=== PATIENT | female | born 1955 | race Caucasian/White ===

== ENCOUNTER → 2020-10-10 10:33 | Outpatient (CLI) | payer BC, SELFPAY ==
--- NOTE | 2020-10-10 10:46 | XR_ITS ---
PROCEDURE INFORMATION: Exam: XR Cervical Spine Exam date and time: 10/10/2020 10:46 AM Age: 65 years old Clinical indication: Patient HX: Left shoulder pain , PT stated pain goes down left arm , no injury; Additional info: Biceps tendonitis on left TECHNIQUE: Imaging protocol: XR of the cervical spine. Views: 4 or 5 views. COMPARISON: No relevant prior studies available. FINDINGS: Bones/joints: No acute fracture of the cervical spine. No subluxation or dislocation of the cervical spine. Intervertebral disc space narrowing C5/C6 may represent degenerative disc disease.. Anterior osteophyte formation C5/C6 Posterior osteophyte formation C5/C6 Degenerative changes in the facets at multiple levels Degenerative changes at C1/C2 Soft tissues: Unremarkable. IMPRESSION: 1. No acute fracture of the cervical spine. 2. No subluxation or dislocation of the cervical spine. 3. Intervertebral disc space narrowing C5/C6 may represent degenerative disc disease..
--- NOTE | 2020-10-10 10:46 | XR_ITS ---
PROCEDURE INFORMATION: Exam: XR Left Shoulder Exam date and time: 10/10/2020 10:46 AM Age: 65 years old Clinical indication: Pain; Shoulder; Left; Additional info: Left shoulder pain TECHNIQUE: Imaging protocol: XR Left shoulder. Views: 2 or more views. COMPARISON: No relevant prior studies available. FINDINGS: Bones/joints: There is no evidence of acute fracture.There is no evidence of malalignment or dislocation. Soft tissues: Normal. IMPRESSION: There is no evidence of acute fracture.There is no evidence of malalignment or dislocation.
== END ==
PROVIDERS: PCP Family Medicine; Visit Provider Family Medicine
DX: M25.512 Pain in left shoulder (principal); M75.22 Bicipital tendinitis, left shoulder
CPT/HCPCS: 72050; 73030

== ENCOUNTER 2020-12-01 12:41 | Outpatient (RCR) | payer BC, SELFPAY ==
--- NOTE | 2020-12-01 14:10 | HMH.PTOPEV ---
PT Outpatient Evaluation Rehab PT Outpatient Evaluation Start: 12/01/20 13:52 Freq: Status: Active Protocol: Document 12/01/20 13:53 ELVIN (Rec: 12/01/20 14:09 ELVIN [id number]) Electronically Signed By Oliverio Oconnell, PT 12/01/20 13:53 Outpatient Therapy Subjective History Subjective History Patient is a 65 year old female presenting to outpatient PT with reports of R shoulder/arm/hand pain starting approximately 2 months ago of insidious onset. Most recent imaging for shoulder negative. Most recent cervical imaging indicates degenration at C5/6. Comorbidities include hx of LS sx, HTN, tubal ligaton and cholecystectomy. Chief Complaint Pain,Paresthesia,Weakness Symptom Type Ache,Other Symptoms Relieved By Nothing Prior Functional Limitations None Current Functional Limitations Reaching,Lifting,Housework, Dressing,Driving,Sleeping, Recreation Activity Symptom Description Constant but Variable Level of pain today (0-10) 5 Pain scale - at its best (0-10) 3 Pain scale - at its worst (0-10) 10 Cervical Eval Palpation Cervical Muscles L Upper Trapezius Cervical/Thoracic Palpation Findings Tenderness Posture Head/C-Spine Posture Sitting Position C-Spine Flattened Head/C-Spine Posture Standing Position C-Spine Flattened Flexibility Deficits Upper Trapezius Muscle Length (R) Moderate Tightness,(L) Moderate Tightness Levaetor Scapulae Muscle Length (R) Moderate Tightness,(L) Moderate Tightness Scalene Group Muscle Length (R) Moderate Tightness,(L) Moderate Tightness Pectoralis Minor Muscle Length (R) Moderate Tightness,(L) Moderate Tightness Passive Joint Mobility Cervical PIVM WNL: R OA L OA R AA L AA R C2/3 L C2/3 R C3/4 L C3/4 R C4/5 L C4/5 R C5/6 L C5/6 R C6/7 L C6/7
== END 2020-12-01 12:45 | disposition home or self-care (01) ==
LOC: PT 12:41
PROVIDERS: PCP Family Medicine; Visit Provider Family Medicine
DX: M50.90 Cervical disc disorder, unspecified, unspecified cervical region (principal); M25.512 Pain in left shoulder
CPT/HCPCS: 97163

== ENCOUNTER → 2021-01-14 15:37 | Outpatient (CLI) | payer BC, SELFPAY ==
--- NOTE | 2021-01-14 15:45 | MR_ITS ---
PROCEDURE: MR CERVICAL SPINE WO CON CLINICAL INDICATION: CERVICAL DISC DISEASE, PAIN IN LEFT SHOULDER COMPARISON: No exams were available for comparison TECHNIQUE: Standard multiplanar multiecho sequences are performed without contrast. 3-D MIP and myelographic images are also rendered and reviewed FINDINGS: There is normal alignment. The craniocervical junction has an unremarkable appearance. C2-C3: Unremarkable. C3-C4: Mild right foraminal narrowing from facet and uncovertebral hypertrophy. C4-C5: Minimal bulging disc eccentric toward the right with mild right lateral recess and foraminal narrowing. There is canal stenosis at this level measuring 10 mm with minimal flattening of the right aspect of the cord anteriorly C5-C6: Degenerative disc disease with mild bulging disc and minimal central disc protrusion versus prominence of the posterior longitudinal ligament. Canal stenosis at 9 mm. There is mild bilateral uncovertebral and facet hypertrophy with moderate left foraminal narrowing and mild right foraminal narrowing. C6-C7: Minimal central disc protrusion with mild bulging disc with canal stenosis of 9 mm. C7-T1: Unremarkable. IMPRESSION: 1. C3-C4: Mild right foraminal narrowing from facet and uncovertebral hypertrophy. 2. C4-C5: Minimal bulging disc eccentric toward the right with mild right lateral recess and foraminal narrowing. There is canal stenosis at this level measuring 10 mm with minimal flattening of the right aspect of the cord anteriorly 3. C5-C6: Degenerative disc disease with mild bulging disc and minimal central disc protrusion versus prominence of the posterior longitudinal ligament. Canal stenosis at 9 mm. There is mild bilateral uncovertebral and facet hypertrophy with moderate left foraminal narrowing and mild right foraminal narrowing. 4. C6-C7: Minimal central disc protrusion with mild bulging disc with canal stenosis of 9 mm. 5. No extruded herniated disc apparent. Dictated by: Alexandr Haider MD 01/15/2021 07:20 Alexandr Haider MD in [facility] 01/15/2021 07:20
--- NOTE | 2021-01-14 15:45 | MR_ITS ---
PROCEDURE: MR SHOULDER LT WO CON CLINICAL INDICATION: CERVICAL DISC DISEASE, PAIN IN LEFT SHOULDER Left shoulder pain with limited range of motion COMPARISON: CR XR SHOULDER LT MIN 2V from 10/10/2020 TECHNIQUE: Routine multiplanar multi echo sequences are performed without gadolinium enhancement. FINDINGS: There are minimal hypertrophic changes at the acromioclavicular joint. There is mild subacromial stenosis with a downsloping type 2 acromion. The subacromial space is approximately 5 mm. There is thickening of the supraspinatus tendon with slight increase in T2 signal consistent with tendinopathy/tendinosis. No evidence of tear of the supraspinatus, infraspinatus, subscapularis, or teres minor tendons. There is a small shoulder joint effusion. Bicipital tendon is in place. There is some fluid surrounding the bicipital tendon. No labral tear apparent. There are mild osteoarthritic changes of the glenohumeral joint and acromioclavicular joint. There is a slightly high-riding humeral head IMPRESSION: Acromioclavicular arthropathy with type 2 downsloping acromion and subacromial stenosis with impingement upon the supraspinatus tendon and tendinopathy/tendinosis of the supraspinatus tendon. No evidence of rotator cuff tear. Mild osteoarthritic changes of the AC joint and glenohumeral joint with shoulder joint effusion and slightly high-riding humeral head. Dictated by: Alexandr Haider MD 01/15/2021 07:14 Alexandr Haider MD in [facility] 01/15/2021 07:14
== END ==
PROVIDERS: PCP Family Medicine; Visit Provider Family Medicine
DX: M50.90 Cervical disc disorder, unspecified, unspecified cervical region (principal); M25.512 Pain in left shoulder
CPT/HCPCS: 72141; 73221; 76376

== ENCOUNTER → 2021-04-09 13:08 | Outpatient (CLI) | payer BC, SELFPAY ==
--- NOTE | 2021-04-09 13:16 | XR_ITS ---
PROCEDURE: XR LUMBAR SPINE MIN 4V CLINICAL INDICATION: ACUTE MIDLINE LOW BACK PAIN W/ RT SIDED SCIATICA COMPARISON: No exams were available for comparison FINDINGS: Normal alignment. No acute fracture or dislocation. No lytic or blastic change. Degenerative disc disease L2-S1 most severe at L4-5 and L5-S1. Degenerative changes of the facets at L5-S1. The SI joints have an unremarkable appearance. Other findings:None. IMPRESSION: Degenerative changes as described above Dictated by: Alexandr Haider MD 04/09/2021 14:37 Alexandr Haider MD in [facility] 04/09/2021 14:37
== END ==
PROVIDERS: PCP Family Medicine; Visit Provider Family Medicine
DX: M54.41 Lumbago with sciatica, right side (principal)
CPT/HCPCS: 72110

== ENCOUNTER → 2021-04-27 07:42 | Outpatient (CLI) | payer BC, SELFPAY ==
[2021-04-27 07:48] LABS: Blood Urea Nitrogen 21 mg/dl (7-17); Estimated Glomerular Filt Rate 72 ml/min (>60); GFR (African American) 87 ML/MIN (>60)
--- NOTE | 2021-04-27 07:51 | MR_ITS ---
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 3-D MIP and myelographic images are also rendered and reviewed FINDINGS: There is normal alignment. Spinal cord ends at the L1 level. T11-T12: Mild degenerative disc disease with minimal bulging disc and mild facet hypertrophic change with mild bilateral lateral recess and moderate bilateral foraminal narrowing slightly greater on the right. T12-L1: Unremarkable. L1-L2: Facet and ligamentum hypertrophic change with mild bilateral lateral recess and foraminal narrowing. L2-L3: Mild degenerative disc disease with concentric bulging disc with moderate facet and ligamentum hypertrophic change with mild to moderate bilateral lateral recess narrowing and mild right and moderate left foraminal narrowing. The facet hypertrophic changes have slightly increased. L3-L4: Degenerative disc disease with bulging disc with moderate facet and ligamentum hypertrophy with moderate to severe bilateral lateral recess narrowing and moderate bilateral foraminal narrowing. The facet and ligamentum hypertrophy has slightly increased. L4-5: Degenerative disc disease with bulging disc with severe facet and ligamentum hypertrophy with canal stenosis and severe bilateral lateral recess narrowing and moderate bilateral foraminal narrowing. There is a small T2 hypointense anterior extradural defect in the right paracentral region suggesting a disc osteophyte complex causing severe right-sided lateral recess narrowing with suspected impingement upon the right L5 nerve root. On the post enhanced images the right paracentral area shows some minimal enhancement along its inferior aspect. Epidural fibrosis therefore is considered in this region as well. L5-S1: Degenerative disc disease. Prior left laminectomy. There is bulging disc/disc osteophyte complex asymmetric toward the left with severe left-sided lateral recess narrowing and severe left foraminal narrowing. 3 mm retrolisthesis of L5. The asymmetric disc osteophyte complex is slightly more prominent compared to the previous study. In the left lateral recess there is some mild contrast enhancement suggesting some mild epidural fibrosis. No fracture or dislocation. No bony destructive process. Type 1 endplate changes are present on the right at L4-5. IMPRESSION: Abnormal MRI of the lumbar spine with multilevel lumbar spondylosis resulting in lateral recess and foraminal narrowing and canal stenosis. Please see above for detailed description at each level. The findings are most severe at L4-5 and L5-S1 with postsurgical changes at L5-S1. Extradural defect on the right at L4-5 anteriorly and could be due to a disc osteophyte complex or an area of epidural fibrosis or a combination there of. Small area of epidural fibrosis suspected in the left lateral recess region at L5-S1. Dictated by: Alexandr Haider MD 04/28/2021 09:01 Alexandr Haider MD in [facility] 04/28/2021 09:01
== END ==
PROVIDERS: PCP Family Medicine; Visit Provider Family Medicine
DX: M54.41 Lumbago with sciatica, right side (principal)
CPT/HCPCS: 36415; 72158; 76376; 82565; 84520; A9576

== ENCOUNTER → 2021-05-06 09:44 | Outpatient (POV) | payer BC, SELFPAY ==
[2021-05-06 10:16] VITALS: BP 145/67; PULSE 85; RESP 18; O2SAT 98; BMI 28.6
--- NOTE | 2021-05-06 13:04 | HMH.PMCON ---
Assessment and Plan (1) Degenerative disc disease, lumbar Status: Chronic Category: Medical Code(s): M51.36 - Other intervertebral disc degeneration, lumbar region (2) Lumbar radiculopathy Status: Chronic Category: Medical Code(s): M54.16 - Radiculopathy, lumbar region - Assessment and plan all Dx Assessment and Plan for all problems:: The patient does have a history of having surgery with Dr. Fletcher more than 20 years ago for the same type of pain on the left side. The pain has subsided left side and is now only right-sided. The patient does have nerve root impingement L5. We did discuss injective therapy. She would like to proceed with an injection. We will schedule her for lumbar epidural steroid injection at L4-L5 area. She is not on any anticoagulation therapy and is not diabetic. We will see the patient back after her injection for further evaluation of symptoms. She will continue with home stretching. We will order the patient diclofenac 75 mg 1 tablet p.o. twice daily and Cymbalta 30 mg 1 tablet p.o. daily. Possible side effects of corticosteroids have been discussed with the patient. Risks and benefits of the procedure have been explained to the patient. Patient would like to proceed with the procedure. Patient has been instructed to contact the clinic with any concerns before the next appointment. Dr. Cardozo has reviewed this note and agrees with this plan of care. This note was dictated using voice recognition software and make contain errors or omissions. HPI - Data of Consult Patient: new to practice Consult date: 05/06/21 Requesting Physician: Yelitza Foster APRN - Consult Narrative Reason for consult: Low back pain History of present illness: Ms. Strange is a 66 year old female who presents today for low back pain. The patient says that the pain is radiating into her right lower extremity. She is having difficulty standing, walking, or sitting due to significant pain. Patient does rate her pain a 6 out of 10 today. The pain does go into the hip. She says that she was given a corticosteroid by her PCP and got significant relief for 2 to 3 days. Unfortunately, the patient's pain did return. She denies any saddle anesthesia or changes in bowel or bladder habit. She denies any recent falls or trauma to her lumbar spine. She is having numbness and tingling into her right lower extremity. She has tried physical therapy for more than 6 weeks and continues with home stretching. She has tried ice and heat therapies. She does continue with Flexeril and sulindac. CC: Yelitza Foster APRN [facility] History I have reviewed the patient's past medical history: Yes *Have you ever received a pneumonia vaccine?: No *Have you received a flu vaccine this season?: No - *Social History Smoking Status: Never smoker Alcohol Intake: never *Occupational Status:: unemployed *Travel in the last 8 weeks: None Family Hx:: Non-contributory Review of Systems - Review of Systems Review of Systems General: No recent weight changes, no fever, no sleep disturbances Respiratory: No cough, no shortness of air, no recurring pulmonary infections Cardiovascular/peripheral vascular: No chest pain, no palpitations, no edema, no shortness of breath Gastrointestinal: No new onset incontinence, normal bowel movements reported Genitourinary: No new onset incontinence Musculoskeletal: Low back pain with radiation into right lower extremity with numbness and tingling right lower extremity Psychiatric: [Normal mood/affect] Neurological: Weakness right lower extremity Meds Home Medications Medication Instructions Recorded Confirmed Type Diclofenac Sodium [Diclofenac 75mg 75 mg PO BID #30 tab 05/06/21 Rx Tab] Duloxetine HCl [Cymbalta 30mg 30 mg PO DAILY #60 cap 05/06/21 Rx capsule] Allergies Allergy/AdvReac Type Severity Reaction Status Date / Time No Known Allergies Allergy Unveri
== END ==
PROVIDERS: Visit Provider Clinical Nurse Specialist Family Health
DX: M51.16 Intervertebral disc disorders with radiculopathy, lumbar region (principal)
CPT/HCPCS: 99202; G0463

== ENCOUNTER 2021-05-26 10:09 | Day surgery (SDC) | payer BC, SELFPAY ==
[2021-05-26 10:32] VITALS: BP 188/96; PULSE 92; RESP 20; TEMP 36.4; BMI 28.1
[2021-05-26 10:48] VITALS: BP 150/85; PULSE 91; RESP 18; O2SAT 97
[2021-05-26 10:59] VITALS: BP 155/93; PULSE 91; RESP 18; O2SAT 96
--- NOTE | 2021-05-26 11:04 | HMH.PMPROC ---
- Procedure Date: 05/26/21 Time: 11:04 Anesthesiologist:: Amaury Cardozo MD Complications:: None Pre-procedure Diagnosis:: Degenerative disc disease of lumbar spine with lumbar radiculopathy symptoms and postlaminectomy syndrome lumbar spine Post-procedure Diagnosis:: Same Indications for Procedure:: Patient is a pleasant 66-year-old white female who we are treating for low back pain with lumbar radiculopathy symptoms and postlaminectomy syndrome lumbar spine. Most of her pain is in the right low back rating down the right leg. We will do a lumbar pleural steroid injection today to see if this helps with her pain symptoms. Procedure Details:: Informed consent was obtained and the risk and benefits of the procedure was explained to the patient. The patient was taken to the procedure room. The patient was placed prone on the procedure table. The patient was prepped and draped in sterile fashion. C-arm fluoroscopy was used to view the lumbar spine. Skin and subcutaneous tissues were anesthetized using lidocaine. I placed an 18-gauge epidural needle and advanced into the L4-L5 interspace using fluoroscopic guidance and [id number] to air. After confirmation of needle placement in the epidural space with dye I injected 2 mL of lidocaine 1.5% with Depo-Medrol 80 mg. Patient tolerated the procedure well with no complications. Plan and Disposition:: We will follow-up with her in 2 weeks. Will reevaluate her symptoms at that time.
[2021-05-26 11:11] VITALS: BP 152/84; PULSE 78; RESP 20; O2SAT 95
== END 2021-05-26 11:12 | disposition home or self-care (01) ==
LOC: SC.PAINP 10:12
PROVIDERS: PCP Family Medicine; Visit Provider Anesthesiology
DX: M51.16 Intervertebral disc disorders with radiculopathy, lumbar region (principal); M96.1 Postlaminectomy syndrome, not elsewhere classified; I10 Essential (primary) hypertension; F41.9 Anxiety disorder, unspecified; F32.A Depression, unspecified
CPT/HCPCS: 62323; J1040; Q9966

== ENCOUNTER → 2021-06-22 10:12 | Outpatient (POV) | payer BC, SELFPAY ==
[2021-06-22 10:27] VITALS: BP 150/80; PULSE 80; RESP 18; O2SAT 97; BMI 28.1
--- NOTE | 2021-06-22 19:52 | HMH.PAINSOAP ---
[facility] Pain Management SOAP Note Subjective:: Patient is a pleasant 62 patient lumbar epidural steroid injection on 05/26/2020. The patient got up to 60% relief for about 2 weeks. Unfortunately, the patient's pain has returned. She is having low back pain with maculopapular areas to her buttock that coincide with pain. She says that the pain becomes severe and she will noticed these areas of pain and burning to her buttock area at the time of severe pain. These areas come and go every other week . She did discuss her concerns with Dr. Ye who feels that it is shingles related. He has given her acyclovir which does seem to help, however, she does continue to have these areas of concern. The patient says that the pain at this time is going into her right lower extremity for which it feels as though water is running down her leg. It is also going into the foot. Today, she rates her pain a 9 out of 10. She does have tenderness to her right low back area that goes into the buttock and groin as well. The patient did try tramadol which gave her minimal relief. Review of Systems General: No recent weight changes, no fever, no sleep disturbances Respiratory: No cough, no shortness of air, no recurring pulmonary infections Cardiovascular/peripheral vascular: No chest pain, no palpitations, no edema, no shortness of breath Gastrointestinal: No new onset incontinence, normal bowel movements reported Genitourinary: No new onset incontinence Musculoskeletal: Low back pain with radiation into right lower extremity Integumentary: Rash to bilateral buttock occurring every other week?burning and pain to the area Psychiatric: [Normal mood/affect] Neurological: [Denies weakness in extremities], [denies balance issues] Objective:: Physical exam General: Alert and oriented x3, no acute distress, pleasant and cooperative Lungs: Respirations even and unlabored, symmetrical chest expansion Eyes: PERRL Musculoskeletal: Flexion and extension of lumbar [spine] somewhat guarded secondary to pain, [antalgic gait noted] Neurological: Speech clear, no gross sensory deficit Skin: Maculopapular rash to left buttock Assessment:: Degenerative disc disease lumbar spine with lumbar radiculopathy symptoms, postlaminectomy syndrome lumbar spine, herpes zoster, shingles Plan:: Patient was discussed with Dr. Cardozo today. He was informed of the patient's maculopapular rash. Patient is having significant pain in her low back area at this time. We will proceed with a lumbar epidural steroid injection at L4-L5. Following the injection if she does get relief, we can proceed with a peripheral nerve block for questionable shingles. Patient and I did discuss that it is very uncommon for shingles to present every other week, however, we can perform a peripheral nerve block in the future if it continues. She is tender to palpation to her right SI joint today. If the epidural does not give her significant relief she may be a candidate for SI injection. We will see her back after her lumbar epidural steroid injection for further evaluation. We will give the patient [place] 5 mg 1 tablet p.o. twice daily. Patient's pain is a 9 out of 10 today. Possible side effects of corticosteroids have been discussed with the patient. Risks and benefits of the procedure have been explained to the patient. Patient would like to proceed with the procedure. Patient has been instructed to contact the clinic with any concerns before the next appointment. Dr. Cardozo has reviewed this note and agrees with this plan of care. This note was dictated using voice recognition software and make contain errors or omissions. Risks and benefits of the medication have been explained in detail to the patient. The patient does understand the risk of dependence on the medication when given over a prolonged period. Patient has been advised of risks of oversedation with the prescribed medicatio
== END ==
PROVIDERS: Visit Provider Clinical Nurse Specialist Family Health
DX: M51.16 Intervertebral disc disorders with radiculopathy, lumbar region (principal); M96.1 Postlaminectomy syndrome, not elsewhere classified; B02.9 Zoster without complications
CPT/HCPCS: 99212; G0463

== ENCOUNTER 2021-07-09 09:17 | Day surgery (SDC) | payer BC, SELFPAY ==
[2021-07-09 09:35] VITALS: BP 146/95; BP 155/81; PULSE 78; PULSE 83; RESP 20; TEMP 36.5; O2SAT 97; O2SAT 98; BMI 28.1
[2021-07-09 09:41] VITALS: BP 158/95; PULSE 86; RESP 20; O2SAT 97
--- NOTE | 2021-07-09 09:48 | HMH.PMPROC ---
- Procedure Date: 07/09/21 Time: 09:48 Anesthesiologist:: Amaury Cardozo MD Complications:: None Pre-procedure Diagnosis:: Degenerative disc disease of lumbar spine with lumbar radiculopathy symptoms Post-procedure Diagnosis:: Same Indications for Procedure:: Patient is a pleasant 66-year-old white female who we are treating for low back pain and postlaminectomy syndrome lumbar spine with right leg radicular symptoms. She has most of her pain down around her right ankle. We will plan on a lumbar pleural steroid injection to see if this helps with her pain symptoms. Her previous epidural steroid injection helped significantly for short period of time. Procedure Details:: Informed consent was obtained and the risk and benefits of the procedure was explained to the patient. The patient was taken to the procedure room. The patient was placed prone on the procedure table. The patient was prepped and draped in sterile fashion. C-arm fluoroscopy was used to view the lumbar spine. Skin and subcutaneous tissues were anesthetized using lidocaine. I placed an 18-gauge epidural needle and advanced into the L4-L5 interspace using fluoroscopic guidance and [id number] to air. After confirmation of needle placement in the epidural space with dye I injected 2 mL of lidocaine 1.5% with Depo-Medrol 80 mg. Patient tolerated the procedure well with no complications. Plan and Disposition:: We will follow-up with her in 2 weeks. Will reevaluate her symptoms at that time.
[2021-07-09 09:53] VITALS: BP 174/91; PULSE 77; RESP 20; O2SAT 98
--- NOTE | 2021-07-09 09:59 | MM_ITS ---
PROCEDURE INFORMATION: Exam: Bilateral Screening 3D Mammography Exam date and time: 07/09/2021 9:59 AM Age: 66 years old Clinical indication: Encounter for screening mammogram for malignant neoplasm of breast TECHNIQUE: Imaging protocol: Bilateral Screening tomosynthesis and 2D mammography including computer-aided detection (CAD) when performed. COMPARISON: [facility] DIG MAMM-SCREEN [facility]YDEN 05/08/2015 1:55 PM FINDINGS: MAMMOGRAPHY: Breast composition: The breast tissue is composed of scattered areas of fibroglandular density. Mass: Stellate mass measuring 1 4 cm correlating with abnormality in the middle third of the left upper outer quadrant Architectural distortion: None. Calcifications: No suspicious calcifications. Asymmetric density: None. Skin thickening: None. Axillary adenopathy: None. IMPRESSION: Patient to be recalled for spot compression views of the left breast in the CC and MLO projections, a full 90 degree lateral view, and left breast ultrasound for further evaluation of a suspicious palpable left breast mass. ASSESSMENT: BI-RADS Category 0: Incomplete- Need Additional Imaging Evaluation and/or Prior Mammograms for Comparison
== END 2021-07-09 09:54 | disposition home or self-care (01) ==
LOC: SC.PAINP 09:21
PROVIDERS: PCP Family Medicine; Visit Provider Anesthesiology
DX: M51.16 Intervertebral disc disorders with radiculopathy, lumbar region (principal); Z12.31 Encounter for screening mammogram for malignant neoplasm of breast; M19.90 Unspecified osteoarthritis, unspecified site; I10 Essential (primary) hypertension
CPT/HCPCS: 62323; 77063; 77067; J1040; Q9966

== ENCOUNTER → 2021-07-22 13:04 | Outpatient (POV) | payer BC, SELFPAY ==
--- NOTE | 2021-07-22 14:04 | P.CONS_ITS ---
[facility] Pain Management SOAP Note Subjective:: Patient is a very pleasant 66-year-old white female who presents today for follow-up. 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 She has previously undergone 2 lumbar epidural steroid injections under fluoroscopy and states that she got very minimal pain relief and states that the pain returned after 2 days. She continues to have chronic low back pain that radiates down the right lower extremity to the right big toe. She also notes some numbness and tingling as well as some burning pain. She rates her pain today as an 8 out of 10. She states that she was referred to neurosurgery by her clinic and is scheduled to undergo neurosurgical evaluation soon. She is currently prescribed hydrocodone 5/325 mg 1 tablet p.o. twice daily and gabapentin 300 mg 1 tablet p.o. 3 times daily that is prescribed by Dr. Ye. Objective:: General: Alert and oriented x3, no acute distress, pleasant and cooperative Lungs: Resps E/U, symmetric chest expansion Eyes: PERRL Musculoskeletal: limited flexion and extension of the lumbar spine secondary to pain. Deep tendon reflexes were normal in bilateral lower extremities. Motor exam was grossly intact in the bilateral lower extremities, antalgic gait noted. Tenderness to palpation over the right SI joint. Positive Gaenslen's on the right, positive SI joint compression, positive stacy's on the right. 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 However, the patient would first like to seek neurosurgical evaluation first before doing the above injection. She is taking gabapentin 300 mg 3 times daily and hydrocodone 5 mg 2 times daily that has been historically prescribed by her primary care provider. We will follow-up with this patient in 1 month for reassessment of her chronic pain symptoms further discuss the treatment plan. Leobardo and prior drug screens have been reviewed and appropriat e. [facility] History Medical History: Reports:: Hypertension Denies:: Cancer, Diabetes Mellitus Type 1, Diabetes Mellitus Type 2, MRSA, Seizures *Have you ever received a pneumonia vaccine?: No *Have you received a flu vaccine this season?: No Other Medical History: Reports: Arthritis Other Surgeries: Yes: Cholecystectomy, Tubal Ligation Amputation: No Fractures: No - *Social History Smoking Status: Never smoker Alcohol Intake: never *Occupational Status:: employed Housing: house Household Members: other *Travel in the last 8 weeks: None Family Hx:: Other
[2021-07-22 14:29] VITALS: BP 150/82; PULSE 83; RESP 20; TEMP 36.3; O2SAT 98; BMI 28.1
== END ==
PROVIDERS: Visit Provider Anesthesiology Pain Medicine
DX: M46.1 Sacroiliitis, not elsewhere classified (principal); M51.16 Intervertebral disc disorders with radiculopathy, lumbar region
CPT/HCPCS: 99212; G0463

== ENCOUNTER → 2021-08-12 13:48 | Outpatient (CLI) | payer BC, SELFPAY ==
--- NOTE | 2021-08-12 13:53 | MM_ITS ---
PROCEDURE INFORMATION: Exam: MG Left Diagnostic Breast Tomosynthesis Exam date and time: 08/12/2021 1:52 PM Age: 66 years old Clinical indication: Patient recalled for further evaluation of a suspicious palpable left breast mass TECHNIQUE: Imaging protocol: Left Diagnostic tomosynthesis and 2D mammography including computer-aided detection (CAD) when performed. Unilateral or bilateral exam. COMPARISON: 1. MG MM DIG SCREENING MAMM BI W/CAD 07/09/2021 10:07 AM 2. MG DMSB DIG MAMM-SCREEN AYDEN 05/08/2015 1:55 PM FINDINGS: MAMMOGRAPHY: Stellate mass persists on spot compression and 90 degree lateral views of the left breast. It is noted in the upper outer quadrant and measures approximately 1.4 cm in greatest dimension. IMPRESSION: Patient to return for left breast ultrasound for further evaluation of a suspicious left breast ASSESSMENT: BI-RADS Category 0: Incomplete- Need Additional Imaging Evaluation and/or Prior Mammograms for Comparison
--- NOTE | 2021-08-12 13:53 | US_ITS ---
PROCEDURE INFORMATION: Exam: US Left Breast, Complete Exam date and time: 08/12/2021 2:13 PM Age: 66 years old Clinical indication: Palpable abnormality. Mammogram performed 08/12/2021 demonstrated a stellate mass in the left upper breast TECHNIQUE: Imaging protocol: Complete ultrasound of all four quadrants of the Left breast and the retroareolar regions, including ultrasound of the axilla when performed. COMPARISON: MG MM DIG MAMM DX UNILAT LT CAD 08/12/2021 1:52 PM FINDINGS: Breast: Sonographic images of the left breast including the retroareolar region, all 4 quadrants and the axilla demonstrates an irregularly marginated vertically oriented solid mass measuring 1.1 x 0.9 by 1.3 cm in dimension. There is associated architectural distortion present. This corresponds to the palpable stellate mass seen on mammography. Finding is highly suggestive of primary breast carcinoma. No other solid or cystic masses are noted in the left breast. No axillary adenopathy. IMPRESSION: Palpable abnormality in the left upper outer quadrant corresponds both mammographically and sonographically to a stellate mass highly suggestive of primary breast carcinoma. Ultrasound-guided core biopsy is recommended for further evaluation. ASSESSMENT: BI-RADS Category 5: Highly suggestive of malignancy
== END ==
LOC: RAD 13:48
PROVIDERS: PCP Family Medicine; Visit Provider Nurse Practitioner Obstetrics & Gynecology
DX: N63.20 Unspecified lump in the left breast, unspecified quadrant (principal); R92.8 Other abnormal and inconclusive findings on diagnostic imaging of breast
CPT/HCPCS: 76641; 77061; 77065; G0279

== ENCOUNTER → 2021-08-26 08:33 | Outpatient (CLI) | payer BC, SELFPAY ==
--- NOTE | 2021-08-26 08:33 | US_ITS ---
FINAL REPORT CLINICAL HISTORY: lt breast nodule-- CORE BX-- LT BREAST -- DR LEYVA TO READ FINDINGS: ULTRASOUND-GUIDED LEFT BREAST MASS BIOPSY TECHNIQUE: Limited images were obtained to localize region of interest. The lesion was noted to be adherent to the left chest wall. The left was prepped in a routine sterile fashion and locally anesthetized with 1% lidocaine. The needle was positioned within the outer anterior periphery of the lesion. A total of 3 passes were made with a 18 gauge core biopsy needle. Biopsy marker clip was placed position along the anterior margin. Procedure was well tolerated . CONCLUSION: 1. Technically successful ultrasound guided core biopsy of left breast mass as above. 2. Biopsy marker clip deployed on the anterior margin of the lesion. Authenticated by Shaista Leyva MD on 08/27/2021 06:13:44 PM [facility]
--- NOTE | 2021-08-26 09:23 | MM_ITS ---
FINAL REPORT CLINICAL HISTORY: . clip placement s/p biopsy, dr mejia to read FINDINGS: MAMMOGRAM DIAGNOSTIC LEFT TECHNIQUE: Standard digital 2-D views COMPARISON: Pre-biopsy exam 07/09/2021 DENSITY: There are scattered areas of fibroglandular density FINDINGS: Spiculated density with distortion is again noted in the left upper outer quadrant. Biopsy marker clip is noted along the anterior margin of the lesion. No new abnormalities are seen otherwise. IMPRESSION: Biopsy marker clip noted along the anterior margin of the spiculated lesion RECOMMENDATION: Pending histopathology results Authenticated by Shaista Mejia MD on 08/27/2021 06:15:12 PM [facility]
== END ==
LOC: RAD 08:33
PROVIDERS: PCP Family Medicine; Visit Provider Nurse Practitioner Obstetrics & Gynecology
DX: R92.8 Other abnormal and inconclusive findings on diagnostic imaging of breast (principal)
CPT/HCPCS: 19083; 77065

== ENCOUNTER → 2021-11-06 10:21 | Outpatient (CLI) | payer BC, SELFPAY ==
[2021-11-06 11:26] LABS: Basophils # 0.1 K/mm3 (0-0.2); Basophils % 1.2 % (0.1-2.0); Eosinophils # 0.2 K/mm3 (0.0-0.4); Eosinophils % 2.7 % (0.1-12.0); Hematocrit 42.1 % (37.0-47.0); Hemoglobin 13.9 g/dL (12.2-16.2); Lymphocytes # 2.1 K/mm3 (0.7-4.5); Lymphocytes % 29.7 % (10-50); Mean Corpuscular HGB Conc 32.9 g/dL (31.8-35.4); Mean Corpuscular Hemoglobin 29.7 pg (27.0-31.2); Mean Corpuscular Volume 90.1 fl (81-99); Mean Platelet Volume 7.6 fl (7.4-10.4); Monocytes # 0.5 K/mm3 (0.1-1.0); Neutrophils # 4.1 K/mm3 (1.8-7.8); Neutrophils % 59.5 % (37.0-80.0); Platelet Count 349 K/mm3 (142-424); Red Blood Count 4.68 M/mm3 (4.20-5.40); Red Cell Distribution Width 13.3 % (11.5-17.5); White Blood Count 6.9 K/mm3 (4.8-10.8)
[2021-11-06 11:48] LABS: Chloride 107 mmol/L (98-107); Sodium 140 mmol/L (136-145)
[2021-11-06 11:49] LABS: Potassium 4.2 mmoL/L (3.5-5.1)
[2021-11-06 11:51] LABS: Anion Gap 9.2 mEq/L (5-15); Blood Urea Nitrogen 22 mg/dl (7-17); Carbon Dioxide 28 mmol/L (22.0-30.0); Estimated Glomerular Filt Rate 101 ml/min (>60); GFR (African American) 122 ML/MIN (>60)
[2021-11-06 11:57] LABS: Calcium 9.4 mg/dl (8.4-10.2); Glucose 106 mg/dl (74-100)
== END ==
PROVIDERS: PCP Family Medicine; Visit Provider Surgery
DX: U07.1 COVID-19 (principal); C50.912 Malignant neoplasm of unspecified site of left female breast; Z17.0 Estrogen receptor positive status [ER+]
CPT/HCPCS: 36415; 80048; 85025; C9803; U0003; U0005

== ENCOUNTER 2021-11-15 07:55 | Day surgery (SDC) | payer BC, SELFPAY ==
[2021-11-11 10:26] VITALS: BMI 26.6
[2021-11-15] VITALS (8 sets, daily range): BP systolic 131–171; BP diastolic 73–87; PULSE 65–72; RESP 16–18; TEMP 36.1–36.7; O2SAT 93–99
--- NOTE | 2021-11-15 | MM_ITS ---
FINAL REPORT CLINICAL HISTORY: . LEFT SURGICAL SPECIMEN FINDINGS: Surgical leftbreast specimen History: Breast cancer Findings: Single view was obtained. Breast specimen is identified with 2 surgical clips, 2 hook wires and a spiculated density. IMPRESSION: Left breastspecimen as above. Films reviewed , interpreted and dictated by Dr. Rizo. Transcribed by Serge Auguste PA-C. Reviewed, Interpreted and Dictated by Shaista Rizo MD Transcribed by DALLAS Faye Authenticated and [facility]
--- NOTE | 2021-11-15 | MM_ITS ---
FINAL REPORT CLINICAL HISTORY: . Right surgical specimen FINDINGS: Surgical right breast specimen History: Breast cancer Findings: Single view was obtained. Breast specimen is identified with one surgical clip in place. The hookwire did not stay in the right breast specimen. IMPRESSION: Right breastspecimen as above. Films reviewed , interpreted and dictated by Dr. Rizo. Transcribed by Serge Auguste PA-C. Reviewed, Interpreted and Dictated by Shaista Rizo MD Transcribed by DALLAS Faye Authenticated and [facility]
[2021-11-15 08:33] LABS: POC Glucose,Bedside 117 (70-110)
--- NOTE | 2021-11-15 08:45 | MM_ITS ---
FINAL REPORT CLINICAL HISTORY: . needle localization , for DR Rizo to read FINDINGS: Bilateral breast needle localization History: Left breast cancer Attending radiologist: Dr. Rizo Physician Collections Curator: Serge Robles PA-C Procedure: After informed consent was obtained and proper timeout procedure performed, the patient was placed within the mammography uunit. Preliminary localization images demonstrated to surgical clips within the patient's left breast. After sterile preparation of the left breast and injection of lidocaine, 2 separate hook wires were placed in the left breast. The first wire was placed adjacent to the posterior clip. The second hwire was placed 2 cm anterior to the anterior clip per instruction of the ordering physician. After sterile preparation of the right breast and injection of lidocaine, a single hook wire was placed into the right breasts localizing the single clip within the right breast. The patient tolerated procedure well and there were no immediate complications. IMPRESSION: Successful needle localization of bilateral breast clips as above. Films reviewed , interpreted and dictated by Dr. Rizo. Transcribed by Serge Auguste PA-C. Reviewed, Interpreted and Dictated by Shaista Rzio MD Transcribed by DALLAS Faye Authenticated and [facility]
--- NOTE | 2021-11-15 08:45 | NM_ITS ---
FINAL REPORT CLINICAL HISTORY: LT BREAST SENTINEL NODE INJECTION ONLY, NO IMAGING 11:05AM 1.45 MCI TC SULFUR COLLOID FINDINGS: SENTINEL NODE INJECTION HISTORY: . Left breast cancer. Attending radiologist: Dr. Rizo Physician Flue Cleaner: Serge Auguste PA-C FINDINGS: After informed consent was obtained and time-out procedure performed, approximately 1.45 mCi of technetium 99m sulfur colloid was injected intradermally into the left breast. Injections were performed in a periareolar fashion . No films were obtained during this procedure. The patient tolerated the procedure with no immediate complication. IMPRESSION: [place] node injection of the left breast as discussed above. Films reviewed , interpreted and dictated by Dr. Rzio. Transcribed by Serge Auguste PA-C. Reviewed, Interpreted and Dictated by Shaista Rizo MD Transcribed by DALLAS Faye Authenticated and [facility]
--- NOTE | 2021-11-15 12:25 | HMH.ANESCL ---
[facility] Anesthesia Checklist - Patient Identification Patient Identification: Arm Band - Structural Data Admitted From: Home Planned Operative Procedure/s: [place] node bx/ lumpectomy Consent for Planned Operative Procedure(s) Verified: Yes - NPO Status Verified Time NPO: 00:00 - Additional verifications Anesthesia Reactions: Yes (itching) Hx Blood Transfusions: No Blood Transfusion Reaction: No - Airway Assessment C-Spine Mobility Assessed: Yes TMJ Mobility Assessed: Yes Dentition: Good Dentition - Neurological Assessment Level of Consciousness: Awake Hx Seizures: No Numbness or tingling in extremities: No - Anesthesia Plan Anesthesia Risk discussed: Yes Anesthesia Plan: Verified ASA Class: III Anesthesia Type: General [facility] History I have reviewed the patient's past medical history: Yes Medical History: Reports:: Diabetes Mellitus Type 2, Hypertension Denies:: Cancer, Diabetes Mellitus Type 1, Internal Pacemaker, MRSA, Seizures *Have you ever received a pneumonia vaccine?: No *Have you received a flu vaccine this season?: No Other Medical History: Reports: Arthritis. Denies: Blood Transfusion Reaction Anesthesia experience/problems:: None Laterality Cases: Left: Breast Biopsy Other Surgeries: Yes: Cholecystectomy, Colonoscopy, Tubal Ligation. No: Pacemaker Amputation: No Fractures: No - *Social History Last grade of school completed: High school graduate Smoking Status: Former smoker #Yrs smoked (if former smoker): 20 Smoking End Date: 15 YEARS AGO Alcohol Intake: current Alcohol Intake Frequency:: holidays/special occasions only Substance Use Type: denies use *Occupational Status:: employed Housing: house Household Members: family *Travel in the last 8 weeks: None Family Hx:: Cancer, Diabetes, Heart Attack
--- NOTE | 2021-11-15 16:04 | HMH.ANESI ---
[facility] Anesthesia Record Part I Intake, IV Amount: 900 Estimated blood loss (mL): 25 Urine output (mL): 1,000 Blood Pressure: 143/73 SaO2: 93 Pulse Rate: 68 Respiratory Rate: 16 Temperature: 97.9 F Patient is:: Drowsy, Oral/Nasal airway Stable to PACU at:: 15:58
--- NOTE | 2021-11-15 16:05 | HMH.OPNOTE ---
Date of procedure: 11/15/21 Pre-op Diagnosis:: Left breast cancer Right breast abnormal imaging and biopsy Post-op Diagnosis:: Same Procedure performed:: Left breast partial mastectomy/lumpectomy after wire localization x2 Left axillary sentinel lymph node biopsy after mapping Right breast excisional biopsy after wire localization Surgeon:: Maximiliano Jaramillo MD AIRCRAFT MECHANIC ARMAMENT:: Lewis Reese Anesthesia: LMA Estimated blood loss (mL): 25 Clinical Note:: Patient presents for breast surgery. She is a pleasant 66-year-old female originally referred by Dr. Bella.? She had felt a mass in the left upper outer breast.? She underwent mammogram which revealed a 1.4 cm stellate lesion.? This was followed by ultrasound which confirmed a solid mass.? On 08/27/2021 she underwent ultrasound-guided core which revealed invasive well differentiated mammary carcinoma, ER positive, ER positive, HER2/tiana negative.? She was sent for surgical consultation. It was felt the patient would likely be a candidate for wire localization lumpectomy and sentinel lymph node biopsy. She was scheduled for breast MRI which was done at [facility] on 09/16/2021. This revealed biopsy-proven carcinoma in the left mid upper outer quadrant measuring 1.9 cm. However there was clumped contrast-enhancement posteriorly and enhancing mass anterior. Biopsies of the lesions on the left revealed invasive ductal carcinoma with lobular features, low-grade. Focal atypical ductal hyperplasia was noted. Also of note, the MRI revealed on the right side there was a dominant oval homogeneous enhancing focal area at the 9 to 10 o'clock position. This was biopsied as well and returned as radial sclerosing lesion (radial scar). Based on imaging and biopsies after MRI it was noted that patient had some slightly more extensive invasive carcinoma on the left than seen on traditional breast imaging. This area measures up to 4 cm. I do feel that she is a candidate for breast conservation. I do not think that she necessarily needs preoperative chemotherapy. I discussed with the patient that needle localization lumpectomy could be performed but would be best performed with placement of 2 wires bracketing the 2 biopsy sites for wide excision. She would then need radiation therapy. I would planned for sentinel lymph node biopsies of the left axilla as well. I discussed the options with her regarding this radial scar on the right side and explained to her that the standard of care is essentially excision. She wished to pursue excision of this as well. Plan arrangements were made for wire localization excision of this sclerosing lesion on the right along with placement of bracketing wires on the left for planned partial mastectomy and injection on the left for sentinel lymph node biopsies. Operative findings:: She had palpable mass in the left breast centrally within the lesion. Please note the dissection was carried down to the pectoralis muscle deeply/posteriorly. There were some findings as well consistent with fibrocystic change. Operative note:: Patient was initially taken to radiology where she underwent placement of 2 wires on the left to bracket the left breast cancer realizing that the cancer did extend somewhat more medially and anteriorly and then the clip placement such that the wire was placed at this location. She underwent placement of wire to the clip on the right side as well where she had biopsy-proven sclerosing lesion. She underwent injection of isotope for sentinel lymph node mapping for sentinel lymph node biopsy. Patient was taken to the operating room. She was given preoperative intravenous antibiotics. General anesthesia was induced via LMA. Both breast and left axilla and left upper extremity were prepped and draped in the standard surgical fashion. Attention was first turned to the left axillary sentinel lymph node biopsy. Gamma neoprobe device was brought onto the [facility]
--- NOTE | 2021-11-15 16:09 | SUR.OPER ---
LATE ENTRY 1501 Kassi from radiology called and stated that both clips and both wires were is specimen of left breast and that the specimen was adequate per radiologist 1542 Kassi from radiology called and stated that clip was in specimen of right breast per radiologist
[2021-11-15 16:10] LABS: POC Glucose,Bedside 116 (70-110)
[2021-11-15 16:16] LABS: Microscopic,Cath URINE MICROSCOPIC (MICROSCOPIC)
[2021-11-15 16:31] LABS: Appearance,Urine/Cath CLEAR (Clear); Bilirubin,Cath Negative (Negative); Blood, Urine/Cath Negative (Negative); Color,Urine/Cath YELLOW (Yellow); Glucose,Urine/Cath (UA) Negative (Negative); Ketones,Urine/Cath Negative (Negative); Leukocyte Esterase,Cath Negative (Negative); Nitrate,Cath Negative (Negative); PH,Urine/Cath 5.5 (5.0-8.5); Protein,Urine/Cath Negative (Negative); Urobilinogen,Cath 0.2 EU/dl (0.2)
[2021-11-15 17:09] LABS: RBC,Urine/Cath Occasional # /hpf (0-3)
--- NOTE | 2021-11-18 08:06 | HMH.ANESII ---
[facility] Anesthesia Record Part II Discharge Time: 16:28 Destination: Home PACU nurse assessment reviewed?: Yes Patient Condition:: Good Anesthesia Complications:: None Swallowing reflex intact?: Yes Cyanosis?: No Blood Pressure: 131/78 Pulse Rate: 67 Temperature: 97.0 F Mental Status: Alert & Oriented Pain level:: 0 Nausea and/or vomitting:: None Intake, IV Amount: 0
[2021-11-18 08:07] VITALS: BP 131/78; PULSE 67; TEMP 36.1
== END 2021-11-15 16:58 | disposition home or self-care (01) ==
LOC: OR 07:55
PROVIDERS: Visit Provider Surgery
PROC: (CPT 19301; principal; 2021-11-15 11:15)
DX: R92.8 Other abnormal and inconclusive findings on diagnostic imaging of breast (principal); Z79.899 Other long term (current) drug therapy; Z17.0 Estrogen receptor positive status [ER+]; D05.12 Intraductal carcinoma in situ of left breast; D05.11 Intraductal carcinoma in situ of right breast; C77.3 Secondary and unspecified malignant neoplasm of axilla and upper limb lymph nodes
CPT/HCPCS: 19301; 38500; 38900; 19101; 19281; 38792; 76098; 81001; 82962; 96374; A9541; J2405

== ENCOUNTER → 2021-12-25 10:50 | Outpatient (CLI) | payer BC, SELFPAY ==
[2021-12-25 11:54] LABS: Basophils # 0.1 K/mm3 (0-0.2); Basophils % 0.9 % (0.1-2.0); Eosinophils # 0.2 K/mm3 (0.0-0.4); Eosinophils % 3.2 % (0.1-12.0); Hematocrit 42.5 % (37.0-47.0); Lymphocytes # 2.2 K/mm3 (0.7-4.5); Lymphocytes % 31.7 % (10-50); Mean Corpuscular HGB Conc 30.5 g/dL (31.8-35.4); Mean Corpuscular Hemoglobin 28.3 pg (27.0-31.2); Mean Corpuscular Volume 92.6 fl (81-99); Mean Platelet Volume 7.5 fl (7.4-10.4); Monocytes # 0.5 K/mm3 (0.1-1.0); Monocytes % 6.7 % (1.7-9.3); Neutrophils # 4.1 K/mm3 (1.8-7.8); Neutrophils % 57.7 % (37.0-80.0); Platelet Count 302 K/mm3 (142-424); Red Blood Count 4.59 M/mm3 (4.20-5.40); Red Cell Distribution Width 13.7 % (11.5-17.5); White Blood Count 7.1 K/mm3 (4.8-10.8)
[2021-12-25 12:18] LABS: Anion Gap 8.2 mEq/L (5-15); Blood Urea Nitrogen 19 mg/dl (7-17); Calcium 9.2 mg/dl (8.4-10.2); Carbon Dioxide 28 mmol/L (22.0-30.0); Chloride 108 mmol/L (98-107); Estimated Glomerular Filt Rate 84 ml/min (>60); GFR (African American) 102 ML/MIN (>60); Glucose 95 mg/dl (74-100); Potassium 4.2 mmoL/L (3.5-5.1); Sodium 140 mmol/L (136-145)
== END ==
PROVIDERS: PCP Family Medicine; Visit Provider Surgery
DX: Z98.890 Other specified postprocedural states (principal); C50.912 Malignant neoplasm of unspecified site of left female breast
CPT/HCPCS: 36415; 80048; 85025

== ENCOUNTER 2022-01-03 09:36 | Day surgery (SDC) | payer BC, SELFPAY ==
[2022-01-03] VITALS (11 sets, daily range): BP systolic 124–150; BP diastolic 69–86; PULSE 63–85; RESP 14–18; TEMP 36.1–36.3; O2SAT 92–99; BMI 26.4
[2022-01-03 10:10] LABS: POC Glucose,Bedside 108 (70-110)
--- NOTE | 2022-01-03 10:13 | P.PN_ITS ---
[facility] Anesthesia Checklist - Structural Data Admitted From: Home Planned Operative Procedure/s: breast bx Consent for Planned Operative Procedure(s) Verified: Yes - Additional verifications Anesthesia Reactions: No Hx Blood Transfusions: No Blood Transfusion Reaction: No - Airway Assessment C-Spine Mobility Assessed: Yes TMJ Mobility Assessed: Yes Dentition: Good Dentition - Neurological Assessment Level of Consciousness: Awake, Alert, Appropriate - Anesthesia Plan Anesthesia Risk discussed: Yes Anesthesia Plan: Verified ASA Class: II Anesthesia Type: General [facility] History I have reviewed the patient's past medical history: Yes Medical History: Reports:: Cancer, Diabetes Mellitus Type 2, Hypertension Denies:: Diabetes Mellitus Type 1, Internal Pacemaker, MRSA, Seizures *Have you ever received a pneumonia vaccine?: No *Have you received a flu vaccine this season?: No Other Medical History: Reports: Arthritis. Denies: Blood Transfusion Reaction Anesthesia experience/problems:: none Laterality Cases: Left: Breast Biopsy Other Surgeries: Yes: Cholecystectomy, Colonoscopy, Tubal Ligation. No: Pacemaker Amputation: No Fractures: No - *Social History Last grade of school completed: High school graduate Smoking Status: Former smoker #Yrs smoked (if former smoker): 20 Alcohol Intake: current Alcohol Intake Frequency:: holidays/special occasions only Substance Use Type: denies use *Occupational Status:: employed Housing: house Household Members: family *Travel in the last 8 weeks: Inside the [place] Family Hx:: Asthma, Cancer, Hypertension
--- NOTE | 2022-01-03 11:56 | HMH.ANESI ---
[facility] Anesthesia Record Part I Intake, IV Amount: 700 Estimated blood loss (mL): 10 Urine output (mL): 0 Blood Pressure: 135/78 SaO2: 92 Pulse Rate: 85 Respiratory Rate: 14 Temperature: 97.0 F Patient is:: Drowsy Stable to PACU at:: 11:54
--- NOTE | 2022-01-03 11:57 | P.OP_ITS ---
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 She also had imaging showing radial scar on the right and recommendations were for excision. The lobectomy of the right side revealed low-grade DCIS with focally involved on oriented cauterized margin. This was ER and IL positive. Plan was made for reexcision of right breast lumpectomy. Operative findings:: Minimal fibrocystic thickened tissue medially Operative note:: Patient was taken to the operating room. She was positioned in supine position. General anesthesia was induced via LMA. Right breast was prepped and draped in the standard surgical fashion. Skin was marked with a skin marker for planned limited extended elliptical incision around previous scar. Dissection was carried down through superficial subcutaneous tissues. The previous excisional biopsy site was excised almost down to pectoralis muscle fascia circumferentially using electrocautery without disruption of the biopsy cavity. Specimen was marked with short suture superiorly and long suture lateral margin. Resection was generous. There was some fibroglandular tissue immediately and extended medial margin was performed using electrocautery. This extended margin was marked with short suture superiorly with the long suture at the new extended margin. The wound was thoroughly irrigated with saline. Hemostasis was achieved with liberal use of electrocautery. Local anesthetic was infiltrated. Hemoclips were placed in the wound to serg the area for potential future need for external beam radiation therapy. Subdermal tissues were closed with interrupted 2-0 Vicryl. Skin was closed with 4-0 Monocryl in a subcuticular fashion. Dermabond and bulky dressing were applied. Condition: stable Disposition: PACU Specimens:: Right breast reexcision lumpectomy Extended medial margin Complications:: None immediately apparent
--- NOTE | 2022-01-03 14:30 | P.PN_ITS ---
[facility] Anesthesia Record Part II Discharge Time: 12:24 Destination: Surgical Day Care (OP Surgery) PACU nurse assessment reviewed?: Yes Patient Condition:: Good Anesthesia Complications:: None Swallowing reflex intact?: Yes Cyanosis?: No Blood Pressure: 138/86 Pulse Rate: 69 Temperature: 97.1 F Mental Status: Alert & Oriented Pain level:: 0 Nausea and/or vomitting:: None Intake, IV Amount: 0
== END 2022-01-03 13:01 | disposition home or self-care (01) ==
LOC: OR 09:37
PROVIDERS: PCP Family Medicine; Visit Provider Surgery
PROC: (CPT 19301; principal; 2022-01-03 11:15)
DX: D05.11 Intraductal carcinoma in situ of right breast (principal); E11.9 Type 2 diabetes mellitus without complications; I10 Essential (primary) hypertension
CPT/HCPCS: 19301; 82962; J2405

== ENCOUNTER → 2022-06-15 12:11 | Outpatient (CLI) | payer BC, SELFPAY ==
--- NOTE | 2022-06-15 | CA_ITS ---
APPROVED REPORT Exam: Exercise Treadmill Technologist: Jessica Robles Ht: 5 ft 7 in Wt: 172 lbs BSA: 1.90 m2 HR: 71 bpm BP: 121/66 mmHg Indications: Exertional Angina Medical History Medications: Metoprolol,,,,, Metformin,,,,, Methocarbamol,,,,, Losartan-HCTZ,,,,, ANASTRazole,,,,, Stress Test Details Test: Manual Treadmill HR Resting HR: 84 bpm Max Heart Rate (APMHR): 155.127964 bpm Max HR Achieved: 127 bpm Target HR (85% APMHR): 131.601030 bpm % of APMHR: 81.94 Recovery HR: 82 bpm BP Resting BP: 121.0/66.0 mmHg Max BP: 157.0/80.0 mmHg Recovery BP: 129.0/72.0 mmHg ECG Resting ECG: Normal sinus rhythm, NS ST abnormalities Clinical Exercise duration: 06:00 min Highest Stage Achieved: Exercise capacity: 5.3 METs Stress ECG Conclusion Patient exercised 6:00 on stage I of [place] Protocol (stage I held to completion due to shortness of air). Test stopped due to shortness of air. Symptoms: Chest heaviness and dyspnea with gradual resolution in recovery. Arrhythmias/Ectopy: Rare PVC ST-T Changes 1.5 - 1.[address] depression inferiorly. 0.5 - [address] depression laterally. Conclusion: GXT positive for ischemia. Myoview images reported separately. Test Summary REST . . . . . . . Sitting REST . . . . . . . Standing REST 04:25 0.0 0.0 84 . 121/ 66 . . Stage 1 01:00 10.0 1.7 100 . . . . Stage 1 02:00 10.0 1.7 118 . . . . Stage 1 . . . . . . . chest tightness Stage 1 . . . . . . . Stage held Stage 1 03:00 10.0 1.7 121 . 148/ 66 . . Stage 1 . . . . . . . Protocol changed to Manual Treadmill Stage 1 04:00 10.0 2.0 124 . 148/ 66 . . Stage 1 . . . . . . . Myoview Injected Stage 1 05:00 10.0 2.0 125 . 148/ 66 . . Stage 1 . . . . . . . Stage resumed Stage 1 06:00 10.0 2.0 127 . 148/ 66 . Stop exercise at 06:00 RECOVERY 01:00 0.0 0.0 112 . . . . RECOVERY 02:00 0.0 0.0 95 . . . . RECOVERY 03:00 0.0 0.0 89 . 157/ 80 . . RECOVERY 04:00 0.0 0.0 86 . 157/ 80 . . RECOVERY 05:00 0.0 0.0 84 . 153/ 76 . . RECOVERY 06:00 0.0 0.0 83 . 137/ 73 . . RECOVERY 07:00 0.0 0.0 82 . 137/ 73 . . RECOVERY 08:00 0.0 0.0 83 . 129/ 72 . . RECOVERY 09:00 0.0 0.0 82 . 129/ 72 . . RECOVERY 09:27 0.0 0.0 85 . 124/ 79 . . Electronically signed by : Arnie Flynn MD 06/16/2022 06:38:51
--- NOTE | 2022-06-15 12:18 | NM_ITS ---
APPROVED REPORT Exam: Nuclear Stress Test Indication: HTN, DM., HYPERLIPIDEMIA, FM HX, C.P., SOB Patient Location: Outpatient Stress Tech: Jessica Robles MT Tech:Yaneli Medeiros STEPHJonel RT (R)(N)(M) Ht: 5 ft 7 in Wt: 172 lbs Bra Size: C HR: 84 bpm BP: 121/66 mmHg BSA: 1.90 m2 TID: 1.30 BMI: 26.9 History: HTN, DM., HYPERLIPIDEMIA, FM HX, C.P., SOB PT HAS HAD BILATERAL BREAST CANCER AND COULD SARAI LAY ON HER STOMACH FOR PRONE IMAGES Procedure: Patient exercised on [place] protocol 6:00 minutes and sec, resting heart rate 84 bpm, resting blood pressure 121/66 mmHg, with exercise maximum heart rate achived was 127 bpm which is 82 % of the maximum predicted heart rate and blood pressure was 157/80 mmHg. Test was stopped due to C.P. & SOB. Patient has Poor exercise capacity, achieved 5.3 METs of workload on treadmill, the blood pressure response to exercise was Adequate. Electrocardiogram Resting electrocardiogram shows sinus rhythm, with exercise there is 1.[address] segment depression noted from the baseline EKG. The EKG portion of the exercise Myoview is positive for ischemia. Cardiac Stress and Resting SPECT Images: Cardiac Stress and Resting SPECT images were obtained using technetium 99m Myoview 31.6 mCi stress and 10.25 mCi at rest. Gated SPECT analysis of segmental wall motion and calculation of the ejection fraction also done. Cardiac stress and rest respectively show large area of reversible ischemia involving the anterior, anterior apical, apex and anteroseptal wall, computer derived ejection fraction is 64% with no regional wall motion abnormality, right ventricle is normal size and contractility. There is transient ischemic dilatation of the left ventricle seen. Conclusion: 1. The EKG portion of the exercise Myoview is positive for ischemia, patient has poor exercise capacity achieved 4.3 METS of workload on treadmill, the blood pressure response to exercise was adequate, patient complained of shortness of breath and chest heaviness with exercise. 2. Scintigraphic evidence of large area of reversible ischemia involving the anterior, anterior apical, apex and anteroseptal wall associated with transient ischemic dilatation of the left ventricle. Computer derived ejection fraction is 64% with no regional wall motion abnormality, right ventricle is normal size and contractility. 3. Abnormal exercise Myoview study. Electronically signed by : Arnie Flynn MD 06/16/2022 06:54:21
== END ==
PROVIDERS: PCP Family Medicine; Visit Provider Family Medicine
DX: I20.8 Other forms of angina pectoris (principal)
CPT/HCPCS: 78452; 93017; A9502

== ENCOUNTER 2022-06-16 10:07 | Day surgery (SDC) | payer BC, SELFPAY ==
[2022-06-16] VITALS (16 sets, daily range): BP systolic 140–208; BP diastolic 61–111; PULSE 73–85; RESP 18–20; TEMP 36.9; O2SAT 95–100; BMI 27.1
--- NOTE | 2022-06-16 10:03 | IR_ITS ---
APPROVED REPORT Patient Location: Outpatient Stuntman: NANDINI Zarate RT (R) PROCEDURES Selective coronary angiogram Left heart catheterization Left ventriculogram Drug-eluting stent deployment to the proximal LAD Drug-eluting stent deployment to the distal dominant right coronary INDICATION Coronary artery disease, High risk abnormal Myoview, Accelerated angina pectoris/acute coronary syndrome Informed consent was obtained prior to the procedure. COMPLICATIONS NONE Estimated Blood Loss: LESS THAN 10 ML TECHNIQUE One percent lidocaine used to anesthetize the right anterior aspect of the wrist. The right radial artery was accessed via the Seldinger technique. A 6 [place] sheath was placed in the right radial artery. 2.5 mg of verapamil, 800 mcg of nitroglycerin, 1mg Lidocaine and 5000 U Heparin were given through the arterial sheath. The papa catheter was also used to perform left heart catheterization, left ventriculogram and selective coronary angiogram. At the end of the diagnostic angiogram therapeutic heparin was administered giving a therapeutic ACT and the guide catheter was placed in the left main artery followed by a Choice PT extra-support wire being placed on the LAD. A 4 mm x 12 mm resolute [place] stent was deployed at 16 ning reducing the critical stenosis to 0%. LOUISE II flow was present before the procedure with LOUISE-3 flow at the end of the procedure. Following this the apparatus was removed and the guide catheter was placed in the right coronary artery followed by the wire being placed distally. A 4 mm x 18 mm resolute Devendra stent was deployed at 20 ning reducing the severe stenosis to 0%. LOUISE-3 flow was present before and after the procedure. At the end of the procedure the apparatus was removed the sheath was removed and hemostasis was achieved using TR banding patient was transferred to the postop putting in stable condition ANGIOGRAPHIC RESULTS The left main artery Normal The left anterior descending artery Has a critical greater than 90% proximal concentric stenosis followed by a long mid vessel 30% eccentric stenosis. The first diagonal artery is small to moderate in size and has an ostial 80% concentric stenosis following stenting. The circumflex artery Is a nondominant yet still large vessel with diffuse 20% stenoses The right coronary artery Is a large dominant vessel with proximal smooth 20% stenosis and a distal concentric 70% stenosis. The [place] ventriculogram reveals Normal 65% The left ventricular end-diastolic pressure 15 mmHg IMPRESSION Critical proximal LAD disease Successful stenting of the proximal LAD critical disease reduced to 0% with 1 drug-eluting stent improving LOUISE II flow to LOUISE-3 flow Severe distal dominant right coronary artery stenosis Successful stenting of the distal dominant right coronary severe disease reduced to 0% with 1 drug-eluting stent Normal ejection fraction Normal left ventricular end-diastolic pressure PLAN 1. Brilinta 90 twice daily plus aspirin 81 mg daily 2. LDL less than 55 to be achieved with high intensity statin 3. Beta-blockers and NIKKI inhibitor's 4. Avoidance of tobacco products 5. Risk factor modification 6. Cardiac rehabilitation Electronically signed by : Ramon Loaiza MD 06/16/2022 14:14:55
[2022-06-16 10:28] LABS: Basophils % 0.4 % (0.1-2.0); Eosinophils # 0.2 K/mm3 (0.0-0.4); Hematocrit 39.6 % (37.0-47.0); Hemoglobin 12.7 g/dL (12.2-16.2); Lymphocytes # 0.9 K/mm3 (0.7-4.5); Lymphocytes % 18.2 % (10-50); Mean Corpuscular HGB Conc 32.1 g/dL (31.8-35.4); Mean Corpuscular Hemoglobin 28.2 pg (27.0-31.2); Mean Corpuscular Volume 87.7 fl (81-99); Mean Platelet Volume 7.5 fl (7.4-10.4); Monocytes # 0.3 K/mm3 (0.1-1.0); Monocytes % 5.7 % (1.7-9.3); Neutrophils # 3.5 K/mm3 (1.8-7.8); Neutrophils % 72.6 % (37.0-80.0); Platelet Count 291 K/mm3 (142-424); Red Blood Count 4.51 M/mm3 (4.20-5.40); Red Cell Distribution Width 13.5 % (11.5-17.5); White Blood Count 4.9 K/mm3 (4.8-10.8)
[2022-06-16 10:32] LABS: Chloride 108 mmol/L (98-107); Sodium 142 mmol/L (136-145)
[2022-06-16 10:35] LABS: Blood Urea Nitrogen 20 mg/dl (7-17); Estimated Glomerular Filt Rate 84 ml/min (>60); GFR (African American) 102 ML/MIN (>60)
[2022-06-16 10:36] LABS: Calcium 8.9 mg/dl (8.4-10.2); Carbon Dioxide 28 mmol/L (22.0-30.0); Glucose 112 mg/dl (74-100)
[2022-06-16 13:38] LABS: CATHL Activated Clotting Time 363 SEC (74-125)
--- NOTE | 2022-06-16 13:53 | CA_ITS ---
APPROVED REPORT EXAM: Comprehensive 2D, Doppler, and color-flow Echocardiogram Robot Designer: Deya Perry RVT Ht: 5 ft 7 in Wt: 173lbs BSA: 1.90 BP: 155/84 mmHg Indications: CP,SOA,ABN GXT,HTN,EX SMOKER,DM,HLD, S/P HEART CATH TDS 2D Dimensions LVOT 2.01 cm (M/F) 1.5-2.5 LA Volume 13.90 mL LA Volume Index 7.32 mL/m2 (M/F) 16-34 M-Mode Dimensions RVDd 1.54 cm (0.9-2.6) LA Diam 3.13 cm (1.9-4.0) LVDd 4.64 cm (3.5-5.7) Ao Diam 2.62 cm (2.0-3.7) LVDs 3.00 cm (3.5-5.7) IVSd 0.75 cm (0.6-1.1) PWd 0.89 cm (0.6-1.1) EF (Teich) 64.80% FS 35.30% EDV (Teich) 99.30 mL ESV (Teich) 35.00 mL LV Diastology E Decel Time 227.00 (160-240 msec) E/A Ratio 0.9 MED E' 7.00 (< 7 cm/sec) E'/MED E' Ratio 12.89 (>14) LAT E' 6.80 (<10 cm/sec) E/LAT E' Ratio 13.26 (>14) Aortic Valve AO Peak GR. 5.20 mmHg Mitral Valve MV E Max Rohan. 90.00 (40-130 cm/s) MV A Velocity 96.00 (40-130 cm/s) E/A Ratio 0.94 MV Decel. Time 227.00 (160-240 ms) MV PHT 66.00 ms Pulmonary Valve PV Peak Velocity 62.00 (50-150 cm/s) Left Ventricle Left atrium is mildly enlarged, left ventricle is normal size mild concentric left ventricular hypertrophy, estimated ejection fraction 55% with no regional wall motion abnormality, grade 1 diastolic dysfunction seen without tissue Doppler evidence of reduced left atrial pressure. Right Ventricle Right atrium and right ventricle are normal size and contractility. Aortic Valve Aortic valve is minimally thickened and fibrosed there is no aortic stenosis or aortic insufficiency. Mitral Valve Mitral valve is grossly normal, there is trace mitral regurgitation. Tricuspid Valve Tricuspid grossly normal, there is trace tricuspid regurgitation, tricuspid regurgitation jet velocity is inadequate for calculation of the right ventricular systolic pressure. Pulmonic Valve Pulmonic valve is poorly visualized. Great Vessels Aortic root is normal size. Inferior vena cava is normal size with normal inspiratory collapse. Pericardium No significant pericardial effusion noted. Conclusion 1. Normal left ventricular size mild concentric left ventricular hypertrophy, estimated ejection fraction 55% with no regional wall motion abnormality, grade 1 diastolic dysfunction seen without tissue Doppler evidence of raise left atrial pressure. 2. Trace mitral and tricuspid regurgitation. 3. No significant pericardial effusion noted. 4. Inferior vena cava is normal size with normal inspiratory collapse. Electronically signed by : Arnie Flynn MD 06/17/2022 15:33:42
--- NOTE | 2022-06-16 15:06 | HMH.PHACL ---
[facility] [employer] Discharge Med Vending Attendant: Juli Strange has received discharge medication counseling on the following medications: ASPIRIN 81 MG DAILY LOSARTAN/HCTZ 50 MG/12.5 MG DAILY METOPROLOL SUCCINATE 25 MG DAILY ROSUVASTATIN 10 MG HS BRILINTA 90 MG BID
== END 2022-06-16 16:34 | disposition home or self-care (01) ==
PROVIDERS: Nurse Practitioner Family; PCP Family Medicine; Visit Provider Internal Medicine
DX: I25.118 Atherosclerotic heart disease of native coronary artery with other forms of angina pectoris (principal); E11.9 Type 2 diabetes mellitus without complications; Z79.84 Long term (current) use of oral hypoglycemic drugs; I10 Essential (primary) hypertension; E78.5 Hyperlipidemia, unspecified; Z82.49 Family history of ischemic heart disease and other diseases of the circulatory system
CPT/HCPCS: 36415; 80048; 85025; 85347; 92928; 93306; 93458; 99152; C1725; C1769; C1876; C9600; J1644; Q9967